=== PATIENT | male | born 1940 | race African-American/Black ===

== ENCOUNTER 2024-11-08 11:51 | Emergency (ER) | payer OTHER ==
[2024-11-08 12:36] LABS: Absolute Lymphocytes (CBC) 0.5 K/uL (0.7-4.9); Absolute Neutrophil 5.3 K/uL (1.8-8.0); Basophils % 0.6 % (0-1.3); Eosinophils % 0.2 % (0-4.4); Hematocrit 45.4 % (39.6-49.0); Hemoglobin 14.8 g/dL (13.6-17.9); Lymphocytes % 7.4 % (15.3-44.8); MCH 27.7 pg (27.0-35.0); MCHC 32.5 g/dL (32.0-36.0); MCV 85.3 fL (80-100); MPV 7.5 fL (7.6-11.3); Monocytes % 14.4 % (3.3-12.3); Neutrophils % 77.4 % (41.7-73.7); Nucleated Red Blood Cells % 0.3 % (0-0); Platelets 215 thou/uL (152-406); RBC Red Blood Cell Count 5.33 M/uL (4.33-5.43)
[2024-11-08 12:50] LABS: PT Prothrombin Time 13.5 SECONDS (9.4-12.5); PTT, Activated Partial Thromb 30.7 SECONDS (24.3-36.9); Protime INR 1.21
[2024-11-08 12:54] LABS: Albumin 3.7 g/dL (3.4-5.0); Albumin/Globulin Ratio 0.9 (1.1-1.8); Anion Gap 11.1 mEq/L (5.0-15.0); Bilirubin Total 0.5 mg/dL (0.2-1.0); Globulin 4.1 g/dL (2.3-3.5); Potassium 4.1 mEq/L (3.5-5.1); Protein, Total 7.8 g/dL (6.4-8.2)
--- NOTE | 2024-11-08 13:06 | RAD REPORT ---
Procedure: Chest Single View HISTORY: Cough COMPARISON: 2013 FINDINGS: The lungs appear clear of acute infiltrate. Calcifications left hemithorax could either represent pul monary granulomas or pleural calcified plaques. No significant pleural effusion noted. The heart is normal size. IMPRESSION: No acute abnormality is displayed.
[2024-11-08] MEDS ORDERED: IBUPROFEN 200 MG TAB PO ONE (14:19)
[2024-11-08] MEDS ORDERED: NA CHLORIDE 0.9% 500 ML ONE (14:19)
[2024-11-08 15:23] LABS: Specific Gravity 1.021 (1.005-1.030); Sqamous Epithelial None Seen /HPF (None Seen); Urine Bacteria None Seen /HPF (<20); Urine Bilirubin NEGATIVE (Negative); Urine Blood Trace (Negative); Urine Clarity Turbid (Clear); Urine Color Yellow (Yellow); Urine Culture Reflex Order NOT NEEDED; Urine Glucose NEGATIVE (Negative); Urine Ketones NEGATIVE (Negative); Urine Microscopic Reflex YN ORDER UMIC; Urine Mucus Slight /HPF (None Seen); Urine Nitrite NEGATIVE (Negative); Urine Protein 1+ (Negative); Urine Urobilinogen Normal (Normal); Urine WBC <5 /HPF (<5); Urine pH 5.5 (5.0-7.0)
[2024-11-08 16:13] LABS: SARS-CoV-2 Antigen CONTROL BLUE LINE VIS/BG OK; SARS-CoV-2 Antigen Rapid Res Negative (Negative)
--- NOTE | 2024-11-08 16:56 | ER ---
Nurse's Notes [facility] Name: José Luis Navarrete Age: 84 yrs Sex: Male : 1940 Arrival Date: 11/08/2024 Time: 11:51 Bed 23 Private MD: Diagnosis: Influenza due to identified novel influenza A virus Presentation: 11/08 11:53 Chief complaint: EMS states: fever and cough x 2 days. Coronavirus screen: Client ss denies travel out of the [place] in the last 14 days. Client presents with at least one sign or symptom that may indicate coronavirus-19. Standard/surgical mask placed on the client. Provider contacted for isolation considerations. Ebola Screen: Patient denies exposure to infectious person. Patient denies travel to an Ebola-affected area in the 21 days before illness onset. Initial Sepsis Screen: Does the patient meet any 2 criteria? Temp <36.0*C (96.8*F)) or > 38.3*C (100.9*F). Does the patient have a suspected source of infection? No. Patient's initial sepsis screen is negative. Risk Assessment: Do you want to hurt yourself or someone else? Patient reports no desire to harm self or others. Onset of symptoms was November 07, 2024. 11:53 Method Of Arrival: EMS: [facility] 11:53 Acuity: GRADY 2 ss 11:58 Care prior to arrival: Medication(s) given: Ofirmev 1000 mg given en route IV ss initiated. 18 GA, in the left antecubital area, Glucose check: 137. Transition of care: patient was not received from another setting of care. Historical: - Allergies: 11:57 No Known Allergies; ss - PMHx: 11:57 Hypertensive disorder; ss - Immunization history:: Adult Immunizations unknown. - Infectious Disease History:: Denies. - Family history:: not pertinent. - Hospitalizations: : No recent hospitalization is reported. - Social history:: Smoking status: Patient denies any tobacco usage or history of. Screenin:26 [facility] ED Fall Risk Assessment (Adult) History of falling in the last 3 months, me1 including since admission No falls in past 3 months (0 pts) Confusion or Disorientation No (0 pts) Intoxicated or Sedated No (0 pts) Impaired Gait No (0 pts) Mobility Assist Device Used No (0 pt) Altered Elimination Yes (1 pt) Score/Fall Risk Level 0 - 2 = Low Risk Maintained a safe environment, Provided non-skid footwear, Hourly rounding (assess needs \T\ fall precautionary measures) done. Abuse screen: Denies threats or abuse. Nutritional screening: No deficits noted. Tuberculosis screening: No symptoms or risk factors identified. Assessment: 12:26 General: Appears ill, well developed, well nourished, Behavior is calm, cooperative, me1 appropriate for age, Reports cough and fever x 2 days. Pain: Denies pain. Neuro: Level of Consciousness is awake, alert, obeys commands, forgetful.. Oriented to person, place, situation. Cardiovascular: Patient's skin is warm and dry. Respiratory: Reports cough that is since 2 days ago Airway is patent Respiratory effort is even, unlabored, Respiratory pattern is regular, symmetrical. GI: No signs and/or symptoms were reported involving the gastrointestinal system. : No signs and/or symptoms were reported regarding the genitourinary system. EENT: No signs and/or symptoms were reported regarding the EENT system. Derm: Skin is intact, is healthy with good turgor, Skin is pink, warm \T\ dry. Musculoskeletal: No signs and/or symptoms reported regarding the musculoskeletal system. Vital Signs: 11:53 BP 139 / 76; Pulse 79; Resp 17; Temp 102(O); Pulse Ox 98% on R/A; Weight 95.25 kg; ss Height 5 ft. 11 in. ; Pain 0/10; 12:30 BP 132 / 76; Pulse 77; Resp 18; Pulse Ox 96% ; me1 13:00 BP 147 / 83; Pulse 74; Resp 16; Pulse Ox 97% ; me1 14:00 BP 161 / 80; Pulse 81; Resp 16; Pulse Ox 99% ; me1 14:22 Temp 98.7(O); me1 15:15 BP 144 / 80; Pulse 68; Resp 16; Pulse Ox 96% ; me1 16:00 BP 123 / 69; Pulse 66; Resp 16; Pulse Ox 100% ; me1 16:53 BP 138 / 64; Pulse 60; Resp 16; Temp 98.8; Pulse Ox 97% ; me1 11:53 Body Mass Index 29.29 (95.25 kg, 180.34 cm) ss 11:53 Pain Scale: Adult ss ED Course: 11:53 Patient arrived in ED. ss 11:53 Colin Hill DO is Attending Physician. ms3 11:54 Attending Physician role handed off by Colin Hill DO rn 11:54 Alexx Loredo MD is Attending Physician. rn 11:57 Triage completed. ss 11:57 Arm band placed on right wrist. ss 12:01 Lucinda Li, RN is Primary Nurse. me1 12:17 Initial lab(s) drawn, by me, sent to lab. First set of blood cultures drawn by me. me1 12:20 Maintain EMS IV. Dressing intact. Good blood return noted. Site clean \T\ dry. Gauge \T\ me 1 site: 18g LAC. Flushed with 10 mL NS. 12:22 Blood Culture Adult (2) Sent. me1 12:22 CBC with Diff Sent. me1 12:22 CMP Sent. me1 12:25 Lactate w/ 2H reflex if indic. Sent. me1 12:25 Protime (+inr) Sent. me1 12:25 Ptt, Activated Sent. me1 12:25 Second set of blood cultures drawn by me. me1 12:26 Patient has correct armband on for positive identification. Bed in low position. Call me1 light in reach. Side rails up X2. Provided Education on: POC. Verbalized understanding.. Client placed on continuous cardiac and pulse oximetry monitoring. NIBP monitoring applied. quality assurance monitor chassis on. Pulse ox on. NIBP on. 12:26 No provider procedures requiring assistance completed. me1 12:41 EKG done, by ED staff, reviewed by Alexx Loredo MD. me1 12:50 Chest Single View XRAY In Process Unspecified. EDMS 13:25 Diet: Patient given water. bd 15:19 Urinalysis w/ reflexes Sent. me1 15:19 Urine collected: clean catch specimen, cloudy. me1 15:31 Flu Sent. me1 15:31 SARS-COV-2 Antigen Rapid Sent. me1 15:32 COVID swab sent to lab. Flu and/or RSV swab sent to lab. me1 17:16 IV discontinued, intact, bleeding controlled, No redness/swelling at site. Pressure me1 dressing applied. Administered Medications: 14:23 Drug: Ibuprofen PO 600 mg PO once Route: PO; me1 15:18 Follow up: Response: No adverse reaction me1 14:23 Drug: NS 0.9% IV 500 ml 500 ml IV at 1 bolus once; to be given as a bolus over 30 me1 minutes Volume: 500 ml; Route: IV; Rate: 1 bolus; Site: left antecubital; 15:19 Follow up: Response: No adverse reaction; IV Status: Completed infusion; IV Intake: me1 500ml Medication: 12:26 VIS not applicable for this client. me1 Intake: 15:19 IV: 500ml; Total: 500ml. me1 Outcome: 16:55 Discharge ordered by . rn 17:16 Discharged to home via wheelchair, with family, me1 17:16 Condition: stable 17:16 Discharge instructions given to patient, family, Instructed on discharge instructions, follow up and referral plans. medication usage, Demonstrated understanding of instructions, follow-up care, medications, Prescriptions given X 1, 17:16 Patient left the ED. me1 Signatures: Dispatcher [employer] EDColeen Edwards Roman, MD MD rn Blanchard, Shelby, RN RN Colin Anderson DO DO ms3 Lucinda Li RN RN me1
--- NOTE | 2024-11-08 16:56 | EDPHYS ---
Physician Documentation [facility] Name: José Luis Navarrete Age: 84 yrs Sex: Male : 1940 Arrival Date: 11/08/2024 Time: 11:51 Bed 23 Private MD: ED Physician Alexx Loredo HPI: 11/08 12:03 This 84 yrs old Black Male presents to ER via EMS with complaints of Fever. rn 12:03 The patient reports fever, that was measured at 101 degrees Fahrenheit. Onset: The rn symptoms/episode began/occurred yesterday. Modifying factors: there are no obvious modifying factors. Severity of symptoms: At their worst the symptoms were moderate in the emergency department the symptoms have improved. The patient has not experienced similar symptoms in the past. EMS reports fever with confusion that began yesterday. Reports cough but denies shortness of breath. Reports increased urinary frequency. No abdominal pain. No vomiting or diarrhea.. Historical: - Allergies: 11:57 No Known Allergies; ss - PMHx: 11:57 Hypertensive disorder; ss - Immunization history:: Adult Immunizations unknown. - Infectious Disease History:: Denies. - Family history:: not pertinent. - Hospitalizations: : No recent hospitalization is reported. - Social history:: Smoking status: Patient denies any tobacco usage or history of. ROS: 12:03 Constitutional: Positive for fever and chills Eyes: Negative for injury, pain, redness, rn and discharge, ENT: Negative for injury, pain, and discharge, Cardiovascular: Negative for chest pain, palpitations, and edema, Respiratory: Positive for cough, negative for shortness of breath Abdomen/GI: Negative for abdominal pain, nausea, vomiting, diarrhea, and constipation, MS/Extremity: Negative for injury and deformity, Skin: Negative for injury, rash, and discoloration, Neuro: Positive for generalized weakness and malaise Exam: 12:03 Constitutional: This is a well developed, well nourished patient who is awake, alert, rn and in no acute distress. ENT: Dry mucous membranes, no stridor Neck: No meningismus Cardiovascular: Regular rate and rhythm. No pulse deficits. Respiratory: No increased work of breathing, no retractions or nasal flaring. Abdomen/GI: Soft, non-tender MS/ Extremity: Pulses equal, no cyanosis. Neuro: Awake and alert, GCS 15, oriented to person, place, not time. Cranial nerves II-XII grossly intact. Motor strength 5/5 in all extremities. Sensory grossly intact. 14:32 ECG was reviewed by the Attending Physician. rn Vital Signs: 11:53 BP 139 / 76; Pulse 79; Resp 17; Temp 102(O); Pulse Ox 98% on R/A; Weight 95.25 kg; ss Height 5 ft. 11 in. ; Pain 0/10; 12:30 BP 132 / 76; Pulse 77; Resp 18; Pulse Ox 96% ; me1 13:00 BP 147 / 83; Pulse 74; Resp 16; Pulse Ox 97% ; me1 14:00 BP 161 / 80; Pulse 81; Resp 16; Pulse Ox 99% ; me1 14:22 Temp 98.7(O); me1 15:15 BP 144 / 80; Pulse 68; Resp 16; Pulse Ox 96% ; me1 16:00 BP 123 / 69; Pulse 66; Resp 16; Pulse Ox 100% ; me1 16:53 BP 138 / 64; Pulse 60; Resp 16; Temp 98.8; Pulse Ox 97% ; me1 11:53 Body Mass Index 29.29 (95.25 kg, 180.34 cm) ss 11:53 Pain Scale: Adult ss MDM: 11:54 Medical Screening Exam initiated rn 16:54 Differential diagnosis: viral Infection, bacterial infection, URI, bronchitis, rn pneumonia UTI. Data reviewed: vital signs, nurses notes, lab test result(s), radiologic studies, plain films, and as a result, I will discharge patient. Counseling: I had a detailed discussion with the patient and/or guardian regarding the historical points, exam findings, and any diagnostic results supporting the discharge/admit diagnosis, lab results, radiology results, the need for outpatient follow up, to return to the emergency department if symptoms worsen or persist or if there are any questions or concerns that arise at home. Special discussion: I discussed with the patient/guardian in detail that at this point there is no indication for admission to the hospital. It is understood, however, that if the symptoms persist or worsen the patient needs to return immediately for re-evaluation. 11/08 11:55 Order name: Blood Culture Adult (2) rn 11/08 11:55 Order name: CBC with Diff; Complete Time: 14:17 rn 11/08 11:55 Order name: CMP; Complete Time: 14:17 rn 11/08 11:55 Order name: Lactate w/ 2H reflex if indic.; Complete Time: 14:17 rn 11/08 11:55 Order name: Protime (+inr); Complete Time: 14:17 rn 11/08 11:55 Order name: Ptt, Activated; Complete Time: 14:17 rn 11/08 11:55 Order name: Urinalysis w/ reflexes; Complete Time: 15:25 rn 11/08 15:25 Order name: Flu; Complete Time: 17:01 rn 11/08 15:25 Order name: SARS-COV-2 Antigen Rapid; Complete Time: 17:01 rn 11/08 11:55 Order name: Chest Single View XRAY; Complete Time: 14:17 rn 11/08 11:55 Order name: EKG; Complete Time: 11:55 rn 11/08 11:55 Order name: Accucheck; Complete Time: 14:17 rn 11/08 11:55 Order name: Cardiac monitoring; Complete Time: 12:40 rn 11/08 11:55 Order name: EKG - Nurse/Tech; Complete Time: 12:40 rn 11/08 11:55 Order name: IV Saline Lock - Large Bore; Complete Time: 12:22 rn 11/08 11:55 Order name: Labs collected and sent; Complete Time: 12:22 rn 11/08 11:55 Order name: O2 Per Protocol; Complete Time: 12:22 rn 11/08 11:55 Order name: O2 Sat Monitoring; Complete Time: 12:22 rn 11/08 11:55 Order name: Vital Signs; Complete Time: 12:22 rn EC:32 Rate is 78 beats/min. Rhythm is regular. QRS [place] is Normal. VT interval is normal. QRS rn interval is normal. QT interval is normal. No Q waves. T waves are Normal. No ST changes noted. Clinical impression: NSR w/ Non-specific ST/T Changes. Interpreted by me. Reviewed by me. Administered Medications: 14:23 Drug: Ibuprofen PO 600 mg PO once Route: PO; me1 15:18 Follow up: Response: No adverse reaction me1 14:23 Drug: NS 0.9% IV 500 ml 500 ml IV at 1 bolus once; to be given as a bolus over 30 me1 minutes Volume: 500 ml; Route: IV; Rate: 1 bolus; Site: left antecubital; 15:19 Follow up: Response: No adverse reaction; IV Status: Completed infusion; IV Intake: me1 500ml Disposition Summary: 11/08/24 16:55 Discharge Ordered Notes: Location: Home rn Problem: new rn Symptoms: have improved rn Condition: Stable rn Diagnosis - Influenza due to identified novel influenza A virus rn Followup: rn - With: Private Physician - When: As needed - Reason: Recheck today's complaints, Re-evaluation by your physician Discharge Instructions: - Discharge Summary Sheet rn - Influenza, Adult rn Forms: - Medication Reconciliation Form rn - Antibiotic health information internship - Prescription Opioid Use rn - Patient Portal Instructions rn - Leadership Thank You Letter rn Prescriptions: - Tamiflu 75 mg Oral capsule - take 1 tablet ORAL route every 12 hours for 5 days; 10 tablet; Refills: 0, rn Product Selection Permitted Signatures: Dispatcher [employer] EDMS Alexx Loredo MD MD rn Blanchard, Shelby, RN RN Lucinda Li RN RN me1 Corrections: (The following items were deleted from the chart) 15:26 15:26 Influenza Screen (A \T\ B)+BA.LAB.BRZ ordered. EDMS EDMS 15:26 15:26 SARS-COV-2 Antigen Rapid+I.LAB.BRZ ordered. EDMS EDMS
[2024-11-08 17:36] VITALS: BP 138/64; TEMP 98.8; O2SAT 97
--- NOTE | 2024-11-10 11:32 | EKG ---
Test Date: 2024-11-08 Test Time: 12:35:24 Building Maintenance Worker: MEASUREMENT RESULTS: Intervals: Rate: 78 MA: 168 QRSD: 76 QT: 344 QTc: 392 [place]: P: 60 MA: 168 QRS: 44 T: 23 INTERPRETIVE STATEMENTS: Normal sinus rhythm with sinus arrhythmia Nonspecific T wave abnormality Abnormal ECG Compared to ECG 08/31/2014 14:45:11 No significant changes Electronically Signed On 11-10-24 11:30:12 [employer] by Remington Robins
== END 2024-11-08 17:16 | disposition home or self-care (01) ==
LOC: ER 11:51
DX: J10.1 Influenza due to other identified influenza virus with other respiratory manifestations (principal); Z11.52 Encounter for screening for COVID-19; I10 Essential (primary) hypertension
CPT/HCPCS: 87040 ×2; 85025; 81001; 36415; 85610; 83605; 85730; 80053; 87804 ×2; 71045; 96360; 99285; 87811; J7040; 93005